=== PATIENT | male | born 1980 | race Two or more races ===

== ENCOUNTER 2019-04-29 13:54 | Emergency (ER) | payer SELFPAY ==
[~2019-04-29] VITALS: Ht 182.9 cm; Wt 95.5 kg
[2019-04-29 19:49] LABS: AMPHET/METH SCREEN,URINE POSITIVE (NEGATIVE); BARBITURATE SCREEN, URINE NEGATIVE (NEGATIVE); BENZODIAZEPINES SCREEN,URINE NEGATIVE (NEGATIVE); CANNABINOID SCREEN,URINE NEGATIVE (NEGATIVE); COCAINE SCREEN,URINE NEGATIVE (NEGATIVE); METHADONE SCREEN, URINE NEGATIVE (NEGATIVE); OPIATE SCREEN,URINE NEGATIVE (NEGATIVE)
[2019-04-29 19:50] LABS: PHENCYCLIDINE SCREEN,URINE NEGATIVE (NEGATIVE)
[2019-04-29 21:15] VITALS: BP 118/74
== END 2019-04-29 21:31 | disposition home or self-care (01) ==
LOC: EMS 13:58
DX: F15.950 Other stimulant use, unspecified with stimulant-induced psychotic disorder with delusions (principal); L30.9 Dermatitis, unspecified; F20.9 Schizophrenia, unspecified; Z59.0 Homelessness